=== PATIENT | female | born 1990 | race Caucasian/White ===

== ENCOUNTER 2021-01-25 02:37 | Day surgery (SDC) | payer OTHER, SELFPAY ==
[2021-01-14 10:30] VITALS: BMI 18.8
--- NOTE | 2021-01-25 08:06 | P.PNAN_ITS ---
Anes - Initial Pre Proc Eval Procedure: Operation Date: 01/25/21 09:45 Proposed Procedures p Esophagogastroduodenoscopy - Darren Mc MD Date/Time: 01/25/21 08:06 Surgeon: Darren Mc MD Pre Op Diagnosis: GERD, chest pain Patient Data Age: 30 Gender: F Height: 1.65 m Weight: 51.2 kg Allergies Allergy/AdvReac Type Severity Reaction Status Date / Time No Known Allergies Allergy Verified 01/25/21 08:54 Home Medications Medication Instructions Recorded Confirmed Type sertraline 50 mg tablet 50 mg PO DAILY 12/21/20 01/14/21 History lorazepam 0.5 mg PO PRN PRN 01/14/21 01/14/21 History pantoprazole 40 mg PO DAILY 01/14/21 01/14/21 History Patient hx anesthesia problems: none Family hx anesthesia problems: none [facility] Past Medical History Medical History Anxiety Chronic GERD Depression Eczema Smoker Social History Social History (Updated 12/21/20 @ 14:46 by Kelly Mcneill, [facility]) Smoking packs per day: 1 Smoking cigarettes per day: 20.0 Smoking status: Current every day smoker Tobacco type: cigarettes Alcohol intake: current Alcohol use details: 4 - 5 times a week Substance use: current Substance use type: marijuana Other substance usage details: edibles for appetite/anxiety Living arrangements: with family Spiritual care concerns: No Anes - Eval Final PreProcedure Day of Procedure 01/25/21 08:06 Patient weight: overweight Heart: regular rate and rhythm Lungs: clear to auscultation and normal air movement Airway: Mallampati scale class II Neurological: alert and oriented Last oral intake: >/= 8 hours ASA classification: II Emergent: no Anesthetic plan: proceed Anesthesia type and monitoring: general GIVS Informed Consent: The patient's anesthetic plan and its attendant risks and bene fits were discussed with the patient/family/POA. Questions were solicited and answers provided to the satisfaction of the patient/family/POA.
[2021-01-25 08:56] VITALS: BP 130/88; PULSE 114; RESP 24; TEMP 36; O2SAT 98; BMI 18.6
[2021-01-25] MEDS: LACTATED RINGERS 1,000 ML 150 ML IV CONT (09:04)
--- NOTE | 2021-01-25 09:24 | WPDGICN ---
Assessment and Plan Assessment and plan (1) Chronic GERD: Code(s): K21.9 - Gastro-esophageal reflux disease without esophagitis Status: Acute (2) Epigastric abdominal pain: Code(s): R10.13 - Epigastric pain Status: Acute Assessment and Plan: Patient with ongoing epigastric pain despite taking pantoprazole 40mg p.o. daily. Plan is for EGD to assess more thoroughly. The recommendations will be given after endoscopy. GI Consult Note Consult date/time: 01/25/21 09:24 HPI: Rosanne Briceño is a 30 year old female presents for EGD. Patient has 1 year history of epigastric pain. She describes this as a knot in her stomach. She was recently diagnosed with acid reflux disease. She has been treated with Prilosec 40mg p.o. daily for the last 1 year. Symptoms have improved but not abated. She states pain will intensify when she drinks milk . She states that she drinks milk frequently. Patient has no difficulty swallowing food or meat. She does admit to rather frequent alcohol intake. Family history is noncontributory. Patient denies any bleeding or weight loss. She presents today for EGD. Review of Systems Review of Systems: All systems reviewed & are unremarkable except as noted in HPI and below PMFSH Past Medical History Medical History Anxiety Chronic GERD Depression Eczema Smoker Social History Social History (Updated 12/21/20 @ 14:46 by Kelly Mcneill [facility]) Smoking packs per day: 1 Smoking cigarettes per day: 20.0 Smoking status: Current every day smoker Tobacco type: cigarettes Alcohol intake: current Alcohol use details: 4 - 5 times a week Substance use: current Substance use type: marijuana Other substance usage details: edibles for appetite/anxiety Living arrangements: with family Spiritual care concerns: No Meds Home Medications and Allergies Home Medications Medication Instructions Recorded Confirmed Type sertraline 50 mg tablet 50 mg PO DAILY 12/21/20 01/14/21 History lorazepam 0.5 mg PO PRN PRN 01/14/21 01/14/21 History pantoprazole 40 mg PO DAILY 01/14/21 01/14/21 History Allergies Allergy/AdvReac Type Severity Reaction Status Date / Time No Known Allergies Allergy Verified 01/25/21 08:54 Vital Signs Vital Signs - 24 hr 01/25/21 08:56 Temperature 96.8 F L Pulse Rate 114 H Respiratory Rate 24 H Blood Pressure 130/88 Pulse Oximetry 98 Exam Narrative: Physical exam reveals Vital Signs be stable. HEENT exam is unremarkable. Patient is anicteric. Lungs are clear to auscultation and percussion. Heart is without murmur or extra sounds. Abdominal exam bowel sounds are present soft nontender with no organomegaly. Digital external rectal exam unremarkable.
[2021-01-25] MEDS: BENZOCAINE (*SP) 60 ML SPRAY CAN (HURRICAINE) 1 SPRAY MUCOUS MEM (09:40)
[2021-01-25 09:48] VITALS: BP 101/67; PULSE 86; RESP 18; O2SAT 98
[2021-01-25 09:58] VITALS: BP 130/67; PULSE 87; RESP 18; O2SAT 100
[2021-01-25 10:04] VITALS: BP 111/82; PULSE 75; RESP 18; O2SAT 99
== END 2021-01-25 10:20 | disposition home or self-care (01) ==
PROVIDERS: PCP Family Medicine; Visit Provider Internal Medicine Gastroenterology
PROC: 0DJ08ZZ Inspection of Upper Intestinal Tract, Via Natural or Artificial Opening Endoscopic (ICD-10-PCS; CPT 43235; principal; 2021-01-25 09:45)
DX: R10.13 Epigastric pain (principal); F41.8 Other specified anxiety disorders; L30.9 Dermatitis, unspecified; F17.210 Nicotine dependence, cigarettes, uncomplicated; F12.90 Cannabis use, unspecified, uncomplicated; R07.89 Other chest pain
CPT/HCPCS: 43239; 87081; J2250; J2704; J7120

== ENCOUNTER 2022-06-01 10:45 | Observation (INO) | payer OTHER, SELFPAY ==
[2022-06-01] VITALS (38 sets, daily range): BP systolic 98–118; BP diastolic 51–74; PULSE 78–100; RESP 16–26; TEMP 36.8; O2SAT 94–99
--- NOTE | ~2022-06-01 | US_ITS ---
EXAMINATION: US abdomen limited DATE: 06/02/2022 15:08 INDICATION: Abnormal liver function tests. TECHNIQUE: Multiple grayscale and Doppler ultrasound images of the abdomen were obtained. COMPARISON: CT abdomen and pelvis 06/01/2022 FINDINGS: The visualized portions of the head, body, and tail of the pancreas are normal. The liver d emonstrates surface nodularity, consistent with cirrhosis. There is normal flow in main portal vein. There are gallstones in the gallbladder, which is distended. Gallbladder wall thickening is noted. Th ere was no sonographic Alba sign. The common duct is normal and measures 4 mm. There is a small vol ume of ascites. IMPRESSION: 1. Cirrhosis of the liver. 2. Distended gallbladder with gallbladder wall thickening and gallstones, but no sonographic Alba s ign. These findings are indeterminate for acute cholecystitis. If there is clinical concern for acute cholecystitis, consider hepatobiliary scintigraphy. 3. Small volume of ascites. Reviewed, dictated and finalized at location A. TENING MACHINE OPERATOR IMPRESSION: 1. Cirrhosis of the liver. 2. Distended gallbladder with gallbladder wall thickening and gallstones, but n o sonographic Alba sign. These findings are indeterminate for acute cholecyst itis. If there is clinical concern for acute cholecystitis, consider hepatobili miryam scintigraphy. 3. Small volume of ascites.
--- NOTE | ~2022-06-01 | US_ITS ---
EXAMINATION: US paracentesis abd w/image DATE: 06/02/2022 15:19 INDICATION: Ascites. TECHNIQUE: The procedure and its risks and benefits were discussed with the patient. Potential risks discussed included bleeding and infection. The skin was prepped and draped in sterile fashion. 1% lid ocaine was used for local anesthesia. Under ultrasound guidance, a 5 Fr catheter with trochar was adv anced into the ascites in the right lower quadrant. Fluid was aspirated into vacuum bottles. The cath eter was removed, and a dressing was applied. There were no immediate complications. FINDINGS: Ultrasound images demonstrate ascites and the catheter within the fluid. IMPRESSION: 1. Successful ultrasound-guided paracentesis yielding 3000 mL of yellowish fluid. Reviewed, dictated and finalized at location A. ET DEVELOPER IMPRESSION: 1. Successful ultrasound-guided paracentesis yielding 3000 mL of yellowish flu id.
--- NOTE | ~2022-06-01 | CT_ITS ---
EXAMINATION: CT abdomen pelvis w con DATE: 06/01/2022 16:05 INDICATION: Left upper quadrant abdominal and epigastric pain. Elevated liver function tests. TECHNIQUE: Computed tomography (CT) of the abdomen and pelvis was performed with 100 mL Omnipaque-350 intravenous contrast. Automated exposure control and iterative reconstruction technique were employe d. The dose-length product was 307.80 mGy-cm. COMPARISON: None FINDINGS: Small left and trace right pleural effusions with associated passive compressive atelectasis in the d ependent lower lobes. Heart size is normal. No pericardial effusion. Hepatomegaly with subtle heterog eneity to the hepatic enhancement and subtle liver surface nodularity consistent with cirrhosis. No d iscrete 8 mm low-attenuation lesion in the right hepatic lobe most likely a small cyst or hemangioma. A few small calcified gallstones in the dependent aspect of the nondilated gallbladder. Suggestion o f edematous gallbladder wall thickening most likely related to liver disease. No intra or extra hepat ic biliary ductal dilation. Borderline splenomegaly measuring 13.3 cm likely related to portal venous hypertension. There is subtle contrast desiccation of a recanalized umbilical vein also suggestive o f portal venous hypertension. There is diffuse mesenteric edema and moderate amount of ascites scatte red throughout the abdomen and pelvis. Bowels including the appendix are normal. Partially decompress ed bladder, uterus and bilateral ovaries are unremarkable. No pathologically enlarged abdominal or pe lvic lymphadenopathy. There is also diffuse mild body wall edema. Small sclerotic left supra-acetabul ar bone island. IMPRESSION: 1. Hepatomegaly with subtle surface nodularity consistent with cirrhosis. 2. Likely secondary portal venous hypertension with peripheral and splenomegaly and recanalized umbil ical vein. 3. Anasarca with mild diffuse body wall edema, mesenteric edema, small left and trace right pleural e ffusions and moderate amount of ascites, all most likely related to liver disease. 4. Cholelithiasis with wall thickening but not dilation of the gallbladder most likely related to miranda er disease. Acute cholecystitis considered less likely but would correlate clinically for Alba sign . If there is clinical concern for acute cholecystitis, HIDA scan could be obtained for further evalu ation. Reviewed, dictated and finalized at location A. ETICIAN PERMANENT MAKEUP ARTIST IMPRESSION: 1. Hepatomegaly with subtle surface nodularity consistent with cirrhosis. 2. Likely secondary portal venous hypertension with peripheral and splenomegaly and recanalized umbilical vein. 3. Anasarca with mild diffuse body wall edema, mesenteric edema, small left and trace right pleural effusions and moderate amount of ascites, all most likely related to liver disease. 4. Cholelithiasis with wall thickening but not dilation of the gallbladder most likely related to liver disease. Acute cholecystitis considered less likely bu t would correlate clinically for Alba sign. If there is clinical concern for acute cholecystitis, HIDA scan could be obtained for further evaluation.
[2022-06-01 11:32] LABS: Basophils Absolute Auto 0.1 K/mm3 (0.0-0.1); Basophils Percent Auto 0.6 % (0.2-1.2); Eosinophils Absolute Auto 0.3 K/mm3 (0-0.3); Hematocrit 26.4 % (37.0-47.0); Hemoglobin 8.7 g/dL (12.0-15.0); Immature Granulocyte Absolute 0.07 K/mm3 (0.00-0.031); Immature Granulocyte Percent A 0.5 % (0-0.5); Lymphocytes Absolute Auto 1.64 K/mm3 (0.9-3.2); Lymphocytes Percent Auto 11.5 % (18.3-44.2); Mean Corpuscular Hemoglobin 29.4 pg (26-34); Mean Corpuscular Volume 89.2 fl (80-100); Mean Platelet Volume 9.9 fl (7.4-10.4); Monocytes Percent Auto 7.3 % (2.6-8.5); Neutrophils Absolute Auto 11.1 K/mm3 (1.3-6.7); Neutrophils Percent Auto 78.1 % (45.5-73.1); Platelet Count Result 338 k/mm3 (150-375); Red Blood Count 2.96 M/mm3 (4.2-5.4); Red Cell Distribution Width 17.3 % (11.5-14.5); White Blood Count 14.3 K/mm3 (4.5-10.0)
[2022-06-01 11:34] LABS: Alanine Aminotransferase 26 U/L (6-35); Albumin Level 3.4 g/dL (3.5-5.1); Alkaline Phosphatase 159 U/L (38-126); Anion Gap 7 mmol/L (8-16); Aspartate Amino Transferase 112 U/L (14-36); Bilirubin,Total 1.8 mg/dL (0.2-1.3); Blood Urea Nitrogen 9 mg/dL (7-17); Calcium 8.3 mg/dL (8.4-10.2); Carbon Dioxide 27 mmol/L (22-30); Chloride 101 mmol/L (98-107); Estimated CRCL calculation 166 ml/min; Estimated Glomerular Filt Rate > 60; Glucose 99 mg/dL (65-110); Lipase 126 U/L (23-300); Potassium 3.5 mmol/L (3.4-5.0); Sodium 135 mmol/L (137-145)
[2022-06-01 14:21] LABS: Add Urine Microscopic? YES; Appearance Urine Cloudy (Clear); Bilirubin Urine 1+ (Negative); Blood Urine Negative (Negative); Color Urine Yellow (Yellow); Glucose Urine UA Negative (Negative); Ketones Urine Negative (Negative); Leukocyte Esterase Ur Negative LEU/UL (Negative); Nitrate Urine Negative (Negative); Protein Urine Trace mg/dL (Negative); Specific Grav Ur 1.025 (1.001-1.035); pH Urine 6.5 (5.0-9.0)
[2022-06-01 14:33] LABS: Amorphous Sediment Urine Few; Bacteria Urine Trace /hpf; Mucus Urine Moderate /lpf; Squamous Epithelial Cell Urine Few /hpf (Few)
--- NOTE | 2022-06-01 16:01 | ED.ABDPAIN ---
HPI - Abdominal Pain General Chief Complaint: Abdominal Pain <Vicky Hand PA-C - Last Filed: 06/02/22 18:59> Stated Complaint: abd distention, legs swelling <Vicky Hand PA-C - Last Filed: 06/02/22 18:59> Time Seen by Provider: 06/01/22 14:53 <MANN Cuevas Last Filed: 06/02/22 18:59> Source: patient <Vicky Hand PA-C - Last Filed: 06/02/22 18:59> Mode of arrival: ambulatory <MANN Cuevas Last Filed: 06/02/22 18:59> Limitations: no limitations <MANN Cuevas Last Filed: 06/02/22 18:59> History of Present Illness HPI narrative: Patient is a 31-year-old female who presents to the ED with report of abdominal and lower extremity swelling. Patient reports having intermittent swelling and distention in her abdomen for the last 3 weeks. It has become worse over the last 1 week. Over the last couple of days, she has also noticed swelling in her lower extremities, worse at the end of the day. She denies any abdominal pain currently, but does report pain with palpation. She has never had symptoms like this before. Denies any fever, chills, nausea, vomiting, diarrhea, constipation, rectal bleeding, chest pain, difficulty breathing. Patient does report a previous history of frequent EtOH use. She states she used to drink 4-5 times a week heavily. She does not drink EtOH in the last 1 month. She does smoke cigarettes. Denies IV drug use. <Vicky Hand PA-C - Last Filed: 06/02/22 18:59> Related Data Home Medications: Home Medications Medication Instructions Recorded Confirmed pantoprazole 40 mg tablet,delayed 40 mg PO DAILY 01/14/21 06/01/22 release famotidine 40 mg tablet 40 mg PO HS 06/01/22 06/01/22 gabapentin 300 mg capsule 600 mg BID 06/01/22 06/01/22 (Neurontin) potassium chloride 20 mEq 20 meq PO DAILY 06/01/22 06/01/22 tablet,extended release <Vicky Hand PA-C - Last Filed: 06/02/22 18:59> Allergies/Adverse Reactions: Allergies Allergy/AdvReac Type Severity Reaction Status Date / Time No Known Allergies Allergy Verified 06/01/22 14:56 <Vicky Hand PA-C - Last Filed: 06/02/22 18:59> Review of Systems Review of Systems: CONSTITUTIONAL: Denies fever, chills, or sweats. CARDIOVASCULAR: Denies chest pain. RESPIRATORY: Denies dyspnea. GASTROINTESTINAL: Reports ABD swelling/distension, TTP. Denies nausea, vomiting, constipation, rectal bleeding, or diarrhea. GENITOURINARY: Denies dysuria or hematuria. MUSCULOSKELETAL: Reports BLE swelling. SKIN: Denies rash or itching. <Vicky Hand PA-C - Last Filed: 06/02/22 18:59> All systems reviewed & are unremarkable except as noted in HPI and below <Vicky Hand PA-C - Last Filed: 06/02/22 18:59> [facility] Past Medical History Medical History: Medical History Anxiety Chronic GERD Depression Eczema Smoker <Vicky Hand PA-C - Last Filed: 06/02/22 18:59> Surgical History Surgical History: Surgical History H/O esophagogastroduodenoscopy H/O wisdom tooth extraction <Vicky Hand PA-C - Last Filed: 06/02/22 18:59> Family History Family History: Family History Mother Diabetes mellitus Colostomy complication Father Hypertension <Vicky Hand PA-C - Last Filed: 06/02/22 18:59> Social History Social History: Social History Social History: She is single . She works at [employer] and [employer]. Patient smokes a pack a cigarettes daily. Patient stated she drink heavily up until about a month ago. She does occasionally use marijuana. She has no children. She does not have a durable power pick up worker for healthcare. Code status full code Smoking packs per day:
[2022-06-01 17:53] LABS: Hepatitis B Surface Antigen Negative (Negative)
[2022-06-01 17:59] LABS: HAV RESULT Negative (Negative); Hepatitis B Core IgM Result Negative (Negative)
[2022-06-01] MEDS: LORazepam INJ (*CRX) 2 MG/ML VIAL 0.5 MG IV PUSH (18:02)
[2022-06-01 18:07] LABS: INR 1.6; Prothrombin Time 18.1 Seconds (11.1-14.7)
[2022-06-01 18:09] LABS: Partial Thromboplastin Time 39.1 SECONDS (22.3-36.8)
[2022-06-01 18:10] LABS: Hepatitis C Virus Antibody Negative (Negative)
[2022-06-01 18:15] LABS: Lactic Acid Reflex 0.8 mmol/L (0.7-2.0)
[2022-06-01 19:11] LABS: NT Pro B Type Natriuretic Pept 507 pg/mL (5-100)
--- NOTE | 2022-06-01 20:58 | PC.NURSE ---
Spoke with Maren from [facility] transfer center for triage report. She states patient is accepted to [facility], but unsure of when a bed will be available. She states to call [phone] option 2 with covid result when we get it.
[2022-06-01 22:19] LABS: Influenza A QL RT-PCR Negative (Negative); Influenza B QL RT-PCR Negative (Negative); SARS-CoV-2 RNA PCR Negative
[2022-06-02] VITALS (57 sets, daily range): BP systolic 91–118; BP diastolic 53–70; PULSE 67–115; RESP 14–28; TEMP 37.1; O2SAT 90–100; BMI 21.1
[2022-06-02] MEDS: MELATONIN 5 MG TABLET PO ×2 (00:21→20:43)
[2022-06-02 11:03] LABS: Basophils Absolute Auto 0.1 K/mm3 (0.0-0.1); Basophils Percent Auto 0.7 % (0.2-1.2); Eosinophils Absolute Auto 0.3 K/mm3 (0-0.3); Eosinophils Percent Auto 2.3 % (0-4.4); Hematocrit 22.7 % (37.0-47.0); Hemoglobin 7.6 g/dL (12.0-15.0); Immature Granulocyte Absolute 0.06 K/mm3 (0.00-0.031); Immature Granulocyte Percent A 0.5 % (0-0.5); Lymphocytes Absolute Auto 1.49 K/mm3 (0.9-3.2); Lymphocytes Percent Auto 12.6 % (18.3-44.2); Mean Corpuscular HGB Conc 33.5 g/dl (32-36); Mean Corpuscular Hemoglobin 29.8 pg (26-34); Mean Platelet Volume 9.6 fl (7.4-10.4); Monocytes Absolute Auto 0.8 K/mm3 (0.1-0.6); Monocytes Percent Auto 6.8 % (2.6-8.5); Neutrophils Absolute Auto 9.1 K/mm3 (1.3-6.7); Neutrophils Percent Auto 77.1 % (45.5-73.1); Platelet Count Result 269 k/mm3 (150-375); Red Blood Count 2.55 M/mm3 (4.2-5.4); White Blood Count 11.8 K/mm3 (4.5-10.0)
[2022-06-02 11:14] LABS: Alanine Aminotransferase 23 U/L (6-35); Albumin Level 2.7 g/dL (3.5-5.1); Alkaline Phosphatase 118 U/L (38-126); Anion Gap 4 mmol/L (8-16); Aspartate Amino Transferase 95 U/L (14-36); Bilirubin,Total 1.8 mg/dL (0.2-1.3); Blood Urea Nitrogen 8 mg/dL (7-17); Calcium 8.1 mg/dL (8.4-10.2); Carbon Dioxide 26 mmol/L (22-30); Chloride 103 mmol/L (98-107); Estimated CRCL calculation 166 ml/min; Estimated Glomerular Filt Rate > 60; Glucose 110 mg/dL (65-110); Potassium 3.5 mmol/L (3.4-5.0); Sodium 133 mmol/L (137-145)
[2022-06-02 11:29] LABS: INR 1.7; Prothrombin Time 19.3 Seconds (11.1-14.7)
[2022-06-02 11:30] LABS: Partial Thromboplastin Time 40.6 SECONDS (22.3-36.8)
--- NOTE | 2022-06-02 12:51 | PM.IMHP ---
H&P: HPI History of Present Illness Date/Time: 06/02/22 12:51 Chief Complaint: Abdominal pain Narrative: This is a 31-year-old female patient who came to the emergency room with complaints of abdominal pain and edema to her abdomen and lower extremities. Patient stated that she noticed some swelling approximately 3 months ago. At 1 point she did take her mother's Lasix which seemed to help. The patient's edema to her abdomen and lower extremities have gotten worse. The patient admits to drinking heavily and quit drinking 1 month ago. She denies any IV drug use. The patient has had no prior history of having any liver disease or ascites. Patient's white count is 11.8. RBCs 2.55 H&H is 7.6 and 22.7. The patient dropped 1 g of hemoglobin in 1 day which may be hemodilutional. Sodium is 133. Total bilirubin is 1.8. Hepatitis panel was negative. She was negative for influenza A/B and COVID. GI has been consulted. Abdominal pelvis CT was read as the following1. Hepatomegaly with subtle surface nodularity consistent with cirrhosis. 2. Likely secondary portal venous hypertension with peripheral and splenomegaly and recanalized umbilical vein. 3. Anasarca with mild diffuse body wall edema, mesenteric edema, small left and trace right pleural effusions and moderate amount of ascites, all most likely related to liver disease. 4. Cholelithiasis with wall thickening but not dilation of the gallbladder most likely related to liver disease. Acute cholecystitis considered less likely but would correlate clinically for Alba sign. If there is clinical concern for acute cholecystitis, HIDA scan could be obtained for further evaluation. The patient is being admitted to observation status on the date of service of 06/02/2022. Review of Systems Review of Systems: See HPI All systems reviewed & are unremarkable except as noted in HPI and below Constitutional: Constitutional: Reports as per HPI and Reports no additional constitutional complaints Eyes: Eyes: Reports as per HPI and Reports no additional eye complaints ENT: Reports system reviewed and no additional complaints, except as documented and Reports Normal hearing present Cardiovascular: Cardiovascular: Reports no additional cardiovascular complaints Respiratory: Respiratory: Reports no additional respiratory complaints and Reports no additional respiratory complaints Gastrointestinal: Gastrointestinal: Reports as per HPI and Reports no additional gastrointestinal complaints Musculoskeletal: Musculoskeletal: Reports no additional musculoskeletal complaints Integumentary/Breasts: Skin/Breast: Reports system reviewed and no additional complaints, except as docu and Reports as per HPI Neurologic: Reports system reviewed and no additional complaints, except as documented, Reports as per HPI and Reports Normal hearing present Psychiatric: Psychiatric: Reports no additional psychiatric complaints and Reports as per HPI Endocrine: Endocrine: Reports no additional endocrine complaints Hematologic/Lymphatic: Hematologic/Lymphatic: Reports no additional hematologic/lymphatic complaints Allergic/Immunologic: Allergic/Immunologic: Reports no additional allergic/immunologic complaints PMFSH Past Medical History Medical History Anxiety Chronic GERD Depression Eczema Smoker Surgical History Surgical History H/O esophagogastroduodenoscopy H/O wisdom tooth extraction Family History Family History Mother Diabetes mellitus Colostomy complication Father Hypertension Social History Social History (Updated 06/02/22 @ 14:48 by Glenys Porter NP) Social History: She is single . She works at [employer] and [employer]. Patient smokes a pack a cigarettes daily. Patient stated she drink heavily up until about a month ago. She does occasionally use marijuana. She has no children. She d
[2022-06-02] MEDS: LORazepam INJ (*CRX) 2 MG/ML VIAL 0.5 MG IV PUSH ×2 (13:01→16:33)
--- NOTE | 2022-06-02 13:32 | ADMGEN ---
This patient, Rosanne Briceño, was admitted to Virtual Bed 3rd Floor-3med surg 316-1. Patient/family oriented to hospital policies and general routines including ID bracelet, bed and alarms, visiting hours, pain management, procedures, bathroom and other care routines, personal items, smoking policy, room service/diet, and visiting hours. Information on how to activate the Rapid Response Team has been discussed. Patient/Family are encouraged to report perceived risks to care and to ask questions if they do not understand what they are told or what they should do.
[2022-06-02] MEDS: FUROSEMIDE INJ 40 MG/4 ML VIAL IV PUSH (13:40)
[2022-06-02] MEDS: cefTRIAXone 2 GM in SODIUM CHLORIDE 0.9% IV 100 ML 200 ML IVPB (16:30)
[2022-06-02 17:02] LABS: Appearance Peritoneal Fluid Hazy (Clear); Color Peritoneal Fluid Yellow (Colorless); Source Peritoneal Fluid Peritoneal Fluid
--- NOTE | 2022-06-02 17:06 | WPDGICN ---
Assessment and Plan Assessment and plan (1) Cirrhosis: Qualifiers: Ascites presence: with ascites Hepatic cirrhosis type: alcoholic cirrhosis Qualified Code(s): K70.31 - Alcoholic cirrhosis of liver with ascites Code(s): K74.60 - Unspecified cirrhosis of liver Status: Acute Assessment and Plan: Patient has cirrhosis of liver which appears be on the basis of alcohol abuse. Patient now with ascites. Plan for supportive care. Alcohol abstinence is strongly encourage support group would be beneficial. Currently recommend 2 g sodium diet. She should avoid salt may benefit from dietitian consult. We will start her on Lasix and spironolactone. Follow-up electrolytes 1-2 weeks after discharge. She can follow up in the GI office 2-3 weeks after discharge for continued followup I have advised the patient the daily weights would be beneficial to monitor progress. Laboratory parameters to exclude hepatitis and other causes of liver disease will be obtained but felt less likely. Patient may be discharged in the morning from my perspective. With outpatient follow-up anticipated. (2) Anasarca: Code(s): R60.1 - Generalized edema Status: Acute Assessment and Plan: Abdominal paracentesis performed today. Await results to exclude any signs of peritonitis or infection. (3) History of ETOH abuse: Code(s): F10.11 - Alcohol abuse, in remission Status: Acute Assessment and Plan: Alcohol or rehab, support group strongly encouraged. (4) Chronic GERD: Code(s): K21.9 - Gastro-esophageal reflux disease without esophagitis Status: Acute Assessment and Plan: Patient with history of GE reflux disease. Anti-reflux measures are encourage for this patient. (5) Cholelithiasis: Code(s): K80.20 - Calculus of gallbladder without cholecystitis without obstruction Status: Acute Assessment and Plan: Gallstones noted on imaging studies. Likely asymptomatic at this point. GI Consult Note Consult date/time: 06/02/22 17:06 Reason for consult: Cirrhosis HPI: Rosanne Briceño is a 31 year old female I am asked to see for at the request of the ER because of cirrhosis of liver. Patient gives a history of abdominal swelling over the last several months. Patient admits to rather heavy alcohol intake predominantly during the COVID crisis. She ultimately states that she stopped drinking 1 month ago. She is fallen off the wagon several times. Patient never knew she had cirrhosis of liver until present the ER yesterday and a imaging studies suggested a nodular liver along with ascites. Patient denies IV drug abuse. She has no prior history of hepatitis. She has no family exposure to hepatitis. Review of Systems Review of Systems: Review of systems noncontributory. [facility] Past Medical History Medical History Anxiety Chronic GERD Depression Eczema Smoker Surgical History Surgical History H/O esophagogastroduodenoscopy H/O wisdom tooth extraction Family History Family History Mother Diabetes mellitus Colostomy complication Father Hypertension Social History Social History (Updated 06/02/22 @ 14:48 by Glenys Porter NP) Social History: She is single . She works at [employer] and [employer]. Patient smokes a pack a cigarettes daily. Patient stated she drink heavily up until about a month ago. She does occasionally use marijuana. She has no children. She does not have a durable power real estate associate attorney for healthcare. Code status full code Smoking packs per day: 1 Smoking cigarettes per day: 20.0 Smoking status: Current every day smoker Tobacco type: cigarettes Alcohol intake: former Alcohol use details: 4 - 5 times a week 06/01/22 - no ETOH in last 1 month Substance use: current Substance use type
[2022-06-02 17:09] LABS: Lymphocytes Peritoneal Fluid 13 %; Neutrophils Peritoneal Fluid 3 % (0-25); Nucleated Cells Peritoneal Flu 75 /uL (0-500); RBC Peritoneal Fluid 75 /uL (0-100000)
[2022-06-02 17:10] LABS: Macrophages Peritoneal Fluid 4 %; Mesothelial Cells Peritoneal Fluid 80 %
[2022-06-02] MEDS: GABAPENTIN 300 MG CAPSULE 600 MG BY MOUTH (20:43)
[2022-06-02] MEDS: PANTOPRAZOLE SODIUM IV 40 MG VIAL IV PUSH (20:43)
[2022-06-03 04:35] VITALS: BP 99/61; PULSE 97; RESP 18; TEMP 37; O2SAT 97
[2022-06-03 07:06] LABS: Basophils Absolute Auto 0.1 K/mm3 (0.0-0.1); Basophils Percent Auto 0.5 % (0.2-1.2); Eosinophils Absolute Auto 0.3 K/mm3 (0-0.3); Eosinophils Percent Auto 2.3 % (0-4.4); Hematocrit 23.1 % (37.0-47.0); Hemoglobin 7.7 g/dL (12.0-15.0); Immature Granulocyte Absolute 0.07 K/mm3 (0.00-0.031); Immature Granulocyte Percent A 0.5 % (0-0.5); Lymphocytes Percent Auto 15.1 % (18.3-44.2); Mean Corpuscular HGB Conc 33.3 g/dl (32-36); Mean Corpuscular Hemoglobin 30.1 pg (26-34); Mean Corpuscular Volume 90.2 fl (80-100); Monocytes Absolute Auto 0.8 K/mm3 (0.1-0.6); Monocytes Percent Auto 6.3 % (2.6-8.5); Neutrophils Percent Auto 75.3 % (45.5-73.1); Platelet Count Result 300 k/mm3 (150-375); Red Blood Count 2.56 M/mm3 (4.2-5.4); Red Cell Distribution Width 16.9 % (11.5-14.5); White Blood Count 13.3 K/mm3 (4.5-10.0)
[2022-06-03 07:11] LABS: Lactic Acid Reflex 1.2 mmol/L (0.7-2.0)
[2022-06-03 07:13] LABS: Alanine Aminotransferase 24 U/L (6-35); Albumin Level 2.9 g/dL (3.5-5.1); Alkaline Phosphatase 138 U/L (38-126); Anion Gap 6 mmol/L (8-16); Aspartate Amino Transferase 89 U/L (14-36); Bilirubin,Total 1.6 mg/dL (0.2-1.3); Blood Urea Nitrogen 7 mg/dL (7-17); Carbon Dioxide 27 mmol/L (22-30); Chloride 103 mmol/L (98-107); Estimated CRCL calculation 137 ml/min; Estimated Glomerular Filt Rate > 60; Glucose 96 mg/dL (65-110); Lactate Dehydrogenase 132 U/L (120-246); Magnesium 1.5 mg/dL (1.6-2.3); Potassium 3.2 mmol/L (3.4-5.0); Sodium 136 mmol/L (137-145)
[2022-06-03] MEDS: GABAPENTIN 300 MG CAPSULE 600 MG BY MOUTH (08:31)
[2022-06-03] MEDS: PANTOPRAZOLE SODIUM IV 40 MG VIAL IV PUSH (08:31)
[2022-06-03] MEDS: POTASSIUM CHLORIDE 20 MEQ TABLET.ER PO (08:31)
[2022-06-03] MEDS: FUROSEMIDE 20 MG TABLET PO (08:32)
[2022-06-03] MEDS: SPIRONOLACTONE 50 MG TABLET PO (08:32)
[2022-06-03] MEDS: POTASSIUM CHLORIDE 20 MEQ TABLET 40 MEQ PO (09:20)
--- NOTE | 2022-06-03 10:35 | PM.DS ---
DS: Admitting Diagnosis Discharge Date 06/03/2022 1035 Admitting Diagnosis Cirrhosis Anxiety Tobacco dependence Transaminitis Chronic GERD DS: Discharge Diagnosis Discharge Diagnosis (1) Cirrhosis: Qualifiers: Ascites presence: with ascites Hepatic cirrhosis type: alcoholic cirrhosis Qualified Code(s): K70.31 - Alcoholic cirrhosis of liver with ascites Code(s): K74.60 - Unspecified cirrhosis of liver Status: Acute Assessment and Plan: GI consulted Underwent paracentesis on 06/02 with -3L fluid Gram stain shows small WBC but no organisms. Started on spironolactone and lasix at low doses. Abd ultrasound consistent with liver cirrhosis, small volume ascites and gallbladder distention but no deleon's sign. Low sodium diet and daily weights encouraged. Follow up electrolytes in 1 week and follow up GI clinic in 2-3 weeks. Counseled on alcohol abstinence (2) Anxiety: Code(s): F41.9 - Anxiety disorder, unspecified Status: Chronic Assessment and Plan: Patient takes PRN hydroxyzine but family does not believe this is helping. Patient drinking is often in response to anxiety, per family. Added low dose lexapro. Counseled to follow up with PCP and black box warning for suicide ideation (3) Smoker: Code(s): F17.200 - Nicotine dependence, unspecified, uncomplicated Status: Acute Assessment and Plan: the patient continues to smoke at least a pack a cigarettes a day. She has been counseled to quit. (4) Chronic GERD: Code(s): K21.9 - Gastro-esophageal reflux disease without esophagitis Status: Chronic Assessment and Plan: Continued PO protonix (5) Transaminitis: Code(s): R74.01 - Elevation of levels of liver transaminase levels Status: Acute Assessment and Plan: most likely related to her cirrhosis hepatitis panel negative. abdominal ultrasound with gallstones but indeterminant for acute cholecystitis. GI following. Appears asymptomatic and no intervention at this time. DS: Summary Hospital Course Reason for hospitalization: abdominal pain Hospital Course: Rosanne Briceño is a 31-year-old female patient with anxiety who presented to the emergency room with complaints of abdominal pain and edema to her abdomen and lower extremities.? Patient stated that she noticed some swelling approximately 3 months ago.? At 1 point she did take her mother's Lasix which seemed to help.? The patient's edema to her abdomen and lower extremities worsened gradually.? The patient reported heavy alcohol intake and quit drinking 1 month ago.? She denied IV drug use.? The patient has had no prior history of having any liver disease or ascites.? Patient's white count is 11.8.? RBCs 2.55 H&H is 7.6 and 22.7.? The patient dropped 1 g of hemoglobin in 1 day which may be hemodilutional.? Sodium is 133.? Total bilirubin is 1.8.? Hepatitis panel was negative.? She was negative for influenza A/B and COVID.?CT abdomen showed hepatomegaly with liver nodularity consistent with cirrhosis, splenomegaly, anasarca with mild diffuse body wall edema, mesenteric edema, trace pleural effusions, moderate ascites and cholelithiasis. She was admitted to the medical floor. GI was consulted.? She was treated with IV lasix x1 and started on spironolactone. She underwent paracentesis on 06/02 with -3L fluid that was sent for analysis. Cytology showed hazy yellow fluid, but otherwise normal PMN. Gram stain, aerobic and anaerobic cultures were negative for bacterial growth. She was discharged home in stable condition, BP was noted to be soft on discharge 99/66 although she remained asymptomatic. The patient and her mother reported significant concerns for anxiety and that Vistaril, which she has taken for several years, has been ineffective. She was started on Lexapro 5 mg daily, spironolactone 50 mg daily, lasix 20 mg daily and protonix 40 mg daily. She was counseled
--- NOTE | 2022-06-03 10:36 | WPDGIPROGNO ---
Progress Note: A&P Assessment and Plan (1) Cirrhosis: Qualifiers: Ascites presence: with ascites Hepatic cirrhosis type: alcoholic cirrhosis Qualified Code(s): K70.31 - Alcoholic cirrhosis of liver with ascites Code(s): K74.60 - Unspecified cirrhosis of liver Status: Acute Assessment and Plan: Patient with new diagnosis of alcoholic cirrhosis of the liver. Additional labs are pending to exclude any other contributing causes. Plan for supportive care present. She does have ascites. Low-salt diet. Daily weights. Low-dose Aldactone supplemented with Lasix is encouraged. We will ask patient follow-up in the GI office in 2-3 weeks after discharge. Follow-up is electrolytes in 1 week to ensure she is tolerating diuretics is advised. Potassium can be discontinued because she will be on Aldactone. She may be discharged today from GI perspective. (2) Cholelithiasis: Code(s): K80.20 - Calculus of gallbladder without cholecystitis without obstruction Status: Acute Assessment and Plan: Gallstone noted on imaging. Appears to be asymptomatic. No therapeutic intervention anticipated at this time. (3) History of ETOH abuse: Code(s): F10.11 - Alcohol abuse, in remission Status: Acute Assessment and Plan: Alcohol abstinence in support group strongly encouraged after discharge. Subjective Date/time seen: 06/03/22 10:36 Patient alert comfortable this morning. Abdomen less distended than on presentation. Denies abdominal pain. Review of Systems Review of Systems: Review of systems noncontributory. Exam Narrative: Physical exam reveals patient to be alert. Vital signs stable. HEENT exam is unremarkable. Patient is anicteric. Lungs are clear to auscultation and percussion. Heart without murmur. Abdomen soft mild distention. No significant tenderness. No obvious organomegaly. Objective Data Vital Signs Vital Signs: Vital Signs - 24 hr 06/02/22 10:45 06/02/22 11:00 06/02/22 11:15 Temperature Pulse Rate 86 82 78 Respiratory Rate 25 H 17 22 H Blood Pressure Pulse Oximetry 96 Oxygen Delivery 06/02/22 11:30 06/02/22 11:45 06/02/22 12:00 Temperature Pulse Rate 76 72 84 Respiratory Rate 22 H 22 H 23 H Blood Pressure Pulse Oximetry Oxygen Delivery 06/02/22 12:15 06/02/22 13:44 06/02/22 22:00 Temperature 98.7 F Pulse Rate 81 115 H Respiratory Rate 23 H 18 Blood Pressure 108/66 Pulse Oximetry 94 Oxygen Delivery Room Air 06/02/22 20:00 06/03/22 04:35 06/03/22 08:45 Temperature 98.6 F Pulse Rate 97 Respiratory Rate 18 Blood Pressure 99/61 L Pulse Oximetry 97 Oxygen Delivery Room Air Room Air Intake/Output Intake/Output: Intake & Output 05/31/22 06/01/22 06/02/22 06/03/22 23:59 23:59 23:59 23:59 Intake Total 100 100 Output Total 3000 Balance -2900 100 Meds/Results Medications: Active Medications Generic Name Dose Route Start Last Admin Trade Name Freq PRN Reason Stop Dose Admin Furosemide 20 mg 06/03/22 09:00 06/03/22 08:32 Furosemide 20 Mg Tablet PO 20 mg DAILY MARISOL Administration Gabapentin 600 mg 06/02/22 21:00 06/03/22 08:31 Gabapentin 300 Mg Capsule BY MOUTH 600 mg Q12HR MARISOL Administration Ceftriaxone Sodium 2 gm/ 100 mls @ 200 mls/hr 06/02/22 16:00 06/02/22 17:00 Sodium Chloride IVPB Infused Q24H MARISOL Infusion Lorazepam 0.5 mg 06/02/22 12:49 06/02/22 16:33 Lorazepam Inj (*Crx) 2 Mg/Ml Vial IV PUSH 0.5 mg Q6H PRN Administration Anxiety Pantoprazole Sodium 40 mg 06/02/22 21:00 06/03/22 08:31 Pantoprazole Sodium Iv 40 Mg Vial IV PUSH 40 mg Q12HR MARISOL Administration Potassium Chloride 20 meq 06/03/22 09:00 06/03/22 08:31 Potassium Chloride 20 Meq Tablet.Er PO 20 meq DAILY MARISOL Administration Vit/Calcium/Iron/Folic Ac 1 tab 06/04/22 09:00 Multivit/Min/Pren/Fol Ac
[2022-06-05 19:39] LABS: Glucose Peritoneal Fluid 100 mg/dL; LDH Peritoneal Fluid 41 U/L (<63); Total Protein Peritoneal Fluid <3.0 g/dL
[2022-06-06 17:28] LABS: Amylase Peritoneal Fluid 17 U/L
[2022-06-06 21:04] LABS: Mitochondrial (M2) Ab (IgG) <=20.0 U (<=20.0)
[2022-06-07 10:02] LABS: Ceruloplasmin 27 mg/dL (18-53)
[2022-06-08 12:56] LABS: Albumin Peritoneal Fluid 0.5 g/dL
== END 2022-06-03 10:55 | disposition home or self-care (01) ==
LOC: ANHED 06-02 03:07 → ANH3MEDSUR 06-02 13:09
PROVIDERS: Internal Medicine Gastroenterology; Nurse Practitioner; Physician Assistant; Admitting Provider Family Medicine; Emergency Provider General Practice; PCP Family Medicine; Visit Provider Family Medicine
DX: K70.31 Alcoholic cirrhosis of liver with ascites (principal); F41.9 Anxiety disorder, unspecified; F17.210 Nicotine dependence, cigarettes, uncomplicated; K21.9 Gastro-esophageal reflux disease without esophagitis; R74.01 Elevation of levels of liver transaminase levels; K80.20 Calculus of gallbladder without cholecystitis without obstruction; R16.0 Hepatomegaly, not elsewhere classified; R00.2 Palpitations; F32.A Depression, unspecified; F10.11 Alcohol abuse, in remission; Z20.822 Contact with and (suspected) exposure to COVID-19; F12.90 Cannabis use, unspecified, uncomplicated
CPT/HCPCS: 36415; 49083; 74177; 76705; 80053; 80074; 81001; 81025; 82042; 82150; 82248; 82390; 82945; 83520; 83605; 83615; 83690; 83735; 83880; 84157; 84443; 85025; 85610; 85730; 87040; 87070; 87075; 87086; 87205; 87636; 88108; 88305; 89051; 96365; 96374; 96375; 96376; 99285; A9270; C9113; G0378; G0379; J0696; J1940; J2060; Q9967